=== PATIENT | male | born 1950 | race Caucasian/White ===

== ENCOUNTER 2022-01-29 05:46 | Emergency (ER) | payer OTHER, SELFPAY ==
[2022-01-29] VITALS (7 sets, daily range): BP systolic 124–160; BP diastolic 61–88; PULSE 74–90; RESP 14–20; TEMP 36.8–37.2; O2SAT 94–97; BMI 35.3
--- NOTE | 2022-01-29 07:04 | PC.NURSE ---
report given to GOKUL Toure
--- NOTE | 2022-01-29 07:19 | ECG_ITS ---
Test Reason : DIZZINESS Blood Pressure : / mmHG Vent. Rate : 074 BPM Atrial Rate : 074 BPM P-R Int : 154 ms QRS Dur : 082 ms QT Int : 400 ms P-R-T Axes : -05 -10 024 degrees QTc Int : 444 ms Normal sinus rhythm Inferior infarct , age undetermined Abnormal ECG When compared to the previous EKG of No significant changes seen Referred By: Ximena Schmid Electronically Signed By:Jacques Acosta
--- NOTE | 2022-01-29 07:20 | ED.DIZZY ---
HPI - Dizziness General Chief Complaint: Dizziness Stated Complaint: dizziness and flu like symptoms for 2xweeks Time Seen by Provider: 01/29/22 06:39 Source: patient Mode of arrival: EMS History of Present Illness HPI Narrative: 71-year-old male with history of diabetes states that he woke up with lightheadedness/dizziness on awakening, states is appetite has been decreased and he has been fighting ?scoot flu-like symptoms? for 2 weeks now. He states that he has had cough and sore throat with malaise and headache but denies any nausea, vomiting, diaphoresis, shortness of breath, chest pain/palpitations. Related Data Allergies Allergy/AdvReac Type Severity Reaction Status Date / Time ibuprofen [From Motrin] Allergy Unknown VOMITING Verified 01/29/22 05:58 Penicillins Allergy Unknown ITCH Verified 01/29/22 05:58 Review of Systems Review of Systems: Pertinent positives and negatives as stated in HPI 10 point review of systems otherwise negative. PMFSH Past Medical History Source: nursing notes reviewed Social History Social History Advance Directives: No Advance Directives Information Provided: Yes Physical Exam Vital Signs: Vital Signs: Last Vital Signs Temp 98.3 F 01/29/22 08:14 Pulse 83 01/29/22 08:14 Resp 20 01/29/22 08:14 BP 139/61 01/29/22 08:14 Pulse Ox 94 01/29/22 08:14 O2 Del Method 01/29/22 08:14 BMI result Body Mass Index 35.3 VITAL SIGNS: Reviewed. GENERAL: Well developed, well nourished, in no acute distress. HEAD: Normocephalic/atraumatic EYES: PERRLA, EOMI EARS: Ext canals without abnormality, TMs non-bulging and non-erythematous NOSE: Nares patent bilateral OROPHARYNX: no oral lesions noted, posterior pharynx clear and non-erythematous without noted tonsillar enlargement/erythema/exudates NECK: Supple, no adenopathy LUNGS: Normal breath sounds. No adventitious sounds or accessory muscle use. SpO2<95> CARDIOVASCULAR: Regular rate and rhythm without noted murmurs, no JVD or lower extremity edema. ABDOMEN: Soft, non-tender, non-distended with bowel sounds. MUSCULOSKELETAL: No tenderness, deformities, or effusions noted on gross inspection. EXTREMITIES: No cyanosis, clubbing or edema. SKIN: Inspection of the skin reveals no rashes NEUROLOGIC: Alert and oriented x 4. Strength and sensation to light touch were grossly intact x 4, cranial nerves 2-12 are grossly intact.. Medical Decision Making Medical Decision Making [facility] Narrative: 71-year-old male with history and clinical presentation of dizziness that I suspect is viral related. I reviewed all investigations which are negative for acute findings, orthostatics are negative and patient was informed of being RSV positive and otherwise discharged home in stable condition. Differential Diagnosis Differential Diagnoses: The differential diagnosis associated with the presentation includes Viral, dehydration, BPPV Lab Data [facility] Lab Attestation statement: I reviewed the patient's lab results. RSV positive Result Diagrams: 01/29/22 07:58 01/29/22 07:58 Labs: Lab Results 01/29/22 01/29/22 01/29/22 Range/Units 07:58 07:58 07:58 WBC 7.8 (4.8-10.8) X10*3/uL RBC 3.95 L (4.60-5.80) X10*6/uL Hgb 11.1 L (14.0-18.0) g/dl Hct 33.2 L (42.0-52.0) % MCV 84.1 (80.0-98.0) fL MCH 28.1 (27.0-33.0) pg MCHC 33.4 (31.0-36.0) g/dl RDW 12.5 (11.0-16.0) % Plt Count 194 (160-400) X10*3/uL MPV 11.2 (9.4-12.4) fL Immature Gran % (Auto) 0.4 (0.0-0.4) % Neut % (Auto) 63.6 (45-73) % Lymph % (Auto) 21.0 (20-40) % [place] % (Auto) 11.7 H (2-11) % Eos % (Auto) 2.8 (0-4) % Baso % (Auto) 0.5 (0-2) % Lymph # (Auto) 1.7 (1.2-4.9) X10*3/uL [place] # (Auto) 0.9 (0.1-1.2) X10*3/uL Eos # (Auto) 0.2 (0.0-0.4) X10*3/uL Baso # (Auto) 0.0 (0.0-0.2) X10*3/uL Abs Immat Gran (auto) 0.03 (0.00-0.03) X10*3/uL Absolute Neuts (auto) 5.0 (2.0-8.3) x10*3/uL Absolute Nucleated RBC 0.000 (0.0-0.012) X10*3/uL Nucleated RBC % (auto) 0.0 (0.0-0.2) /100WBC Sodium 140 (135-145) mmol/L Potassium 4.0 (3.3-5.1) mmol/L Chloride 102 (96-108) mmol/L Carbon Dioxide 27 (22-29) mmol/L Anion Gap 15 (12-20) BUN 13 (9-16) mg/dL Creatinine 0.85 (0.5-1.4) mg/dL Estim Creat Clear Calc 83.3 Estimated GFR > 60 Random Glucose 103 (60-115) mg/dL Calcium 8.4 (8.4-10.2) mg/dL Total Bilirubin 1.0 (0.0-1.0) mg/dL AST 25 (5-37) U/L ALT 25 (0-40) U/L Alkaline Phosphatase 68 (39-117) U/L Total Protein 6.3 L (6.5-8.0) g/dL Albumin 3.7 (3.5-5.0) g/dL Urine Color Urine Appearance Urine pH (5.0-9.0) Ur Specific [place] (1.005-1.025) Urine Protein (Neg-Trace) mg/dL Urine Glucose (UA) (Negative) mg/dL Urine Ketones (Negative) mg/dL Urine Blood (Negative) Urine Nitrite (Negative) Ur Leukocyte Esterase (Negative) Influenza Type A (PCR) NEGATIVE (Negative) Influenza Type B (PCR) NEGATIVE (Negative) RSV RNA Qual (PCR) POSITIVE A (Negative) SARS-CoV-2 RNA (RT-PCR) NEGATIVE (Negative) 01/29/22 Range/Units 07:58 WBC (4.8-10.8) X10*3/uL RBC (4.60-5.80) X10*6/uL Hgb (14.0-18.0) g/dl Hct (42.0-52.0) % MCV (80.0-98.0) fL MCH (27.0-33.0) pg MCHC (31.0-36.0) g/dl RDW (11.0-16.0) % Plt Count (160-400) X10*3/uL MPV (9.4-12.4) fL Immature Gran % (Auto) (0.0-0.4) % Neut % (Auto) (45-73) % Lymph % (Auto) (20-40) % [place] % (Auto) (2-11) % Eos % (Auto) (0-4) % Baso % (Auto) (0-2) % Lymph # (Auto) (1.2-4.9) X10*3/uL [place] # (Auto) (0.1-1.2) X10*3/uL Eos # (Auto) (0.0-0.4) X10*3/uL Baso # (Auto) (0.0-0.2) X10*3/uL Abs Immat Gran (auto) (0.00-0.03) X10*3/uL Absolute Neuts (auto) (2.0-8.3) x10*3/uL Absolute Nucleated RBC (0.0-0.012) X10*3/uL Nucleated RBC % (auto) (0.0-0.2) /100WBC Sodium (135-145) mmol/L Potassium (3.3-5.1) mmol/L Chloride (96-108) mmol/L Carbon Dioxide (22-29) mmol/L Anion Gap (12-20) BUN (9-16) mg/dL Creatinine (0.5-1.4) mg/dL Estim Creat Clear Calc Estimated GFR Random Glucose (60-115) mg/dL Calcium (8.4-10.2) mg/dL Total Bilirubin (0.0-1.0) mg/dL AST (5-37) U/L ALT (0-40) U/L Alkaline Phosphatase (39-117) U/L Total Protein (6.5-8.0) g/dL Albumin (3.5-5.0) g/dL Urine Color Yellow Urine Appearance Clear Urine pH 7.5 (5.0-9.0) Ur Specific [place] 1.015 (1.005-1.025) Urine Protein Trace (Neg-Trace) mg/dL Urine Glucose (UA) Negative (Negative) mg/dL Urine Ketones Negative (Negative) mg/dL Urine Blood Negative (Negative) Urine Nitrite Negative (Negative) Ur Leukocyte Esterase Negative (Negative) Influenza Type A (PCR) (Negative) Influenza Type B (PCR) (Negative) RSV RNA Qual (PCR) (Negative) SARS-CoV-2 RNA (RT-PCR) (Negative) Independent Interpretation I performed an independent interpretation of an: EKG Interpretation: Normal sinus rhythm, HR-74, no STEMI, MT/QRS/QTC is within normal limits. Discharge Plan Discharge Clinical Impression: Viral illness, Respiratory syncytial virus (RSV) Patient Disposition: Home, Self-Care Instructions: Viral Syndrome (ED), Respiratory Syncytial Virus (ED) Additional Instructions: 1. Resume all home medications as prescribed. 2. Recommend [id number] cough medication, sleep in a reclined position and not flat, cool mist humidifier at the bedside. 3. Continue with [id number] Tylenol for any headaches, body aches, temperatures greater than 100.4. 4. Follow-up with your primary care provider by calling the office today and setting up an appointment for re-evaluation further outpatient management. You have been diagnosed with RSV, which is a virus. Continue to drink plenty of water. Return to the ER for worsening symptoms.
[2022-01-29 08:22] LABS: MANUAL DIFF FLAG NO
[2022-01-29 08:25] LABS: Appearance Urine Clear; Color Urine Yellow; Glucose Urine UA Negative (Negative); Leukocyte Esterase Urine Negative (Negative); Nitrite Urine Negative (Negative); PH 7.5 (5.0-9.0); Specific Gravity - Urine 1.015 (1.005-1.025); Urine Blood Negative (Negative); Urine Ketones Negative (Negative); Urine Protein Trace mg/dL (Neg-Trace)
[2022-01-29 08:30] LABS: Basophils Percent Auto 0.5 % (0-2); Eosinophils Absolute Auto 0.2 X10*3/uL (0.0-0.4); Eosinophils Percent Auto 2.8 % (0-4); Hematocrit 33.2 % (42.0-52.0); Hemoglobin 11.1 g/dl (14.0-18.0); Imm Gran Abs Auto 0.03 X10*3/uL (0.00-0.03); Imm Gran Pct Auto 0.4 % (0.0-0.4); Lymphocytes Absolute Auto 1.7 X10*3/uL (1.2-4.9); Mean Corpuscular HGB Conc 33.4 g/dl (31.0-36.0); Mean Corpuscular Hemoglobin 28.1 pg (27.0-33.0); Mean Corpuscular Volume 84.1 fL (80.0-98.0); Mean Platelet Volume 11.2 fL (9.4-12.4); Monocytes Absolute Auto 0.9 X10*3/uL (0.1-1.2); Monocytes Percent Auto 11.7 % (2-11); Neutrophils Percent Auto 63.6 % (45-73); Platelet Count 194 X10*3/uL (160-400); Red Blood Count 3.95 X10*6/uL (4.60-5.80); Red Cell Distribution Width 12.5 % (11.0-16.0); White Blood Count 7.8 X10*3/uL (4.8-10.8)
[2022-01-29 08:47] LABS: Alanine Aminotransferase 25 U/L (0-40); Albumin Level 3.7 g/dL (3.5-5.0); Alkaline Phosphatase 68 U/L (39-117); Anion Gap 15 (12-20); Aspartate Amino Transferase 25 U/L (5-37); Blood Urea Nitrogen 13 mg/dL (9-16); Calcium 8.4 mg/dL (8.4-10.2); Carbon Dioxide 27 mmol/L (22-29); Chloride 102 mmol/L (96-108); Creatinine Clr Calc Pharmacy 83.3; Estimated Glomerular Filt Rate > 60; Glucose Random 103 mg/dL (60-115); Sodium 140 mmol/L (135-145); Total Protein 6.3 g/dL (6.5-8.0)
[2022-01-29 09:07] LABS: Influenza A PCR NEGATIVE (Negative); Influenza B PCR NEGATIVE (Negative); Resp Syncy Virus RNA Qual PCR POSITIVE (Negative); SARS COV2 PCR INHOUSE NEGATIVE (Negative)
== END 2022-01-29 10:41 | disposition home or self-care (01) ==
PROVIDERS: Emergency Provider Student in an Organized Health Care Education/Training Program
DX: J06.9 Acute upper respiratory infection, unspecified (principal); B97.4 Respiratory syncytial virus as the cause of diseases classified elsewhere; R42 Dizziness and giddiness; Z20.822 Contact with and (suspected) exposure to COVID-19; Z79.899 Other long term (current) drug therapy
CPT/HCPCS: 0241U; 80053; 81003; 85025; 93005; 99283; 99284

== ENCOUNTER 2024-02-08 00:03 | Emergency (ER) | payer OTHER, SELFPAY ==
--- NOTE | 2024-02-08 | ECG_ITS ---
Test Reason : CHEST PAIN Blood Pressure : / mmHG Vent. Rate : 087 BPM Atrial Rate : 087 BPM P-R Int : 162 ms QRS Dur : 084 ms QT Int : 364 ms P-R-T Axes : 035 -10 038 degrees QTc Int : 438 ms Normal sinus rhythm Inferior infarct (cited on or before 17-JUL-2015) Abnormal ECG When compared with ECG of 29-JAN-2022 07:34, No significant change was found Referred By: Generic ED Physician Electronically Signed By:ALEKS BOLANOS MD
[2024-02-08 00:21] VITALS: BP 140/78; BP 147/74; PULSE 88; PULSE 93; RESP 20; TEMP 37; O2SAT 96; BMI 33.3
[2024-02-08 00:36] LABS: Basophils Percent Auto 0.5 % (0-2); Eosinophils Percent Auto 0.1 % (0-4); Hematocrit 31.3 % (42.0-52.0); Hemoglobin 10.9 g/dl (14.0-18.0); Imm Gran Abs Auto 0.01 X10*3/uL (0.00-0.03); Imm Gran Pct Auto 0.1 % (0.0-0.4); Lymphocytes Absolute Auto 1.3 X10*3/uL (1.2-4.9); Lymphocytes Percent Auto 17.9 % (20-40); MANUAL DIFF FLAG NO; Mean Corpuscular HGB Conc 34.8 g/dl (31.0-36.0); Mean Corpuscular Hemoglobin 28.9 pg (27.0-33.0); Mean Platelet Volume 10.7 fL (9.4-12.4); Monocytes Absolute Auto 0.8 X10*3/uL (0.1-1.2); Monocytes Percent Auto 11.5 % (2-11); Neutrophils Absolute Auto 5.1 x10*3/uL (2.0-8.3); Neutrophils Percent Auto 69.9 % (45-73); Platelet Count 195 X10*3/uL (160-400); Red Blood Count 3.77 X10*6/uL (4.60-5.80); Red Cell Distribution Width 12.4 % (11.0-16.0); White Blood Count 7.3 X10*3/uL (4.8-10.8)
[2024-02-08 00:55] LABS: Troponin-I High Sensitivity 4.3 ng/L (<3.5-35.0)
[2024-02-08 00:57] LABS: Alanine Aminotransferase 13 U/L (0-40); Albumin Level 3.8 g/dL (3.5-5.0); Alkaline Phosphatase 62 U/L (39-117); Anion Gap 14 (12-20); Aspartate Amino Transferase 27 U/L (5-37); Bilirubin Total 0.6 mg/dL (0.0-1.0); Blood Urea Nitrogen 16 mg/dL (9-16); Calcium 8.3 mg/dL (8.4-10.2); Carbon Dioxide 25 mmol/L (22-29); Chloride 102 mmol/L (96-108); Creatinine Clr Calc Pharmacy 68.1; Estimated Glomerular Filt Rate > 60; Glucose Random 247 mg/dL (60-115); Lipase 31 U/L (8-78); Magnesium 1.2 mg/dL (1.6-2.6); Potassium 3.7 mmol/L (3.3-5.1); Sodium 137 mmol/L (135-145); Total Protein 6.5 g/dL (6.5-8.0)
--- NOTE | 2024-02-08 01:26 | ED.GENADULT ---
HPI - General Adult General Chief complaint: General Medical Stated complaint: Left shoulder pain x3 days Time Seen by Provider: 02/08/24 01:27 Source: patient and family () Mode of arrival: ambulatory Limitations: no limitations History of Present Illness ED Provider: Dr. David Worrell HPI narrative: 73-year-old male with a history of sciatica, brain aneurysm who presents emergency department for evaluation of left-sided neck and shoulder pain x3 days. The patient states that he woke up with pain in his left neck and the pain is gotten progressively worse. He states he now has pain in his left neck with spasm of his neck muscles. He also states the pain radiates to his left shoulder and to his left chest. Pain is worse with movement. He denied fever, chills, shortness of breath, nausea, vomiting or diaphoresis. Patient took a naproxen and tizanidine with no relief of his pain. He states his pain is currently 10/10. Related Data Previous Rx's ?Medication ?Instructions ?Recorded cyclobenzaprine 10 mg tablet 10 mg PO TID PRN muscle pain or 02/08/24 spasm #20 tabs Allergies Allergy/AdvReac Type Severity Reaction Status Date / Time ibuprofen [From Motrin] Allergy Unknown VOMITING Verified 02/08/24 00:26 Penicillins Allergy Unknown ITCH Verified 02/08/24 00:26 Review of Systems Review of Systems: Yes all other systems are reviewed and are negative [facility] Social History Social History Smoked in Last 30 Days: No Use of substances other than those prescribed or required for medical reasons: No Advance Directives: No Do you have a plan to hurt others: No Plan Physical Exam ED Vital Signs: Vital Signs - 24 hr 02/08/24 00:21 Temperature 98.6 F Pulse Rate 88 Respiratory Rate 20 Blood Pressure 147/74 H Pulse Oximetry 96 Oxygen Delivery Method Room Air BMI result Body Mass Index 33.3 Vital signs revealed an elevated blood pressure of 147/74 otherwise unremarkable Exam: Head: Normocephalic atraumatic Neck: Patient has tenderness with palpation in his left trapezius muscle in the spasm of this muscle. Patient was limited range of motion of his head and neck secondary to spasm and pain Lungs: Clear to auscultation, breath sounds symmetric bilaterally Heart: Regular rate and rhythm normal S1-2, no murmurs, gallops Abdomen: Soft, nontender, nondistended, normoactive bowel sounds Extremity: Patient has no tenderness to palpation of his left shoulder, has full range of motion in his left shoulder without any difficulty Neuro: Nonfocal Medications Administered Discontinued Medications Generic Name Dose Route Start Last Admin Trade Name Obi PRN Reason Stop Dose Admin Cyclobenzaprine HCl 10 mg 02/08/24 01:59 02/08/24 02:10 Cyclobenzaprine Hcl 10 Mg Tablet PO 02/08/24 02:00 10 mg ONCE ONE Administration Ketorolac Tromethamine 60 mg 02/08/24 01:59 02/08/24 02:10 Ketorolac Tromethamine 60 Mg/2 Ml Vial IM 02/08/24 02:00 60 mg ONCE ONE Administration Magnesium Oxide 800 mg 02/08/24 02:02 02/08/24 02:10 Magnesium Oxide 400 Mg Tablet PO 02/08/24 02:03 800 mg ONCE ONE Administration Medical Decision Making Medical Decision Making MDM Narrative: 73-year-old man with a history of sciatica, brain aneurysm who presents emergency department for evaluation of left neck, shoulder and chest pain x3 days. Physical examination did reveal significant spasm and tenderness of the left trapezius muscle. Differential diagnosis: ?Includes but is not limited to musculoskeletal pain, musculoskeletal spasm, myocardial infarction, myocardial ischemia, electrolyte abnormalities, anemia Course: 02:29 My interpretation patient's laboratory evaluation is as follows: Normocytic anemia with an H&H of 10.9 and 31.3. Glucose elevated 240 7. Troponin was detectable but not elevated at 4.3. Magnesium was low at 1.2. Patient's 12 EKG revealed no acute abnormalities. Patient's presentation is consistent with musculoskeletal injury/spasm of the left trapezius muscle. Patient was treated with Toradol 60 mg IM and Flexeril 10 mg orally. Patient was advised to continue to take his Aleve 1 pill twice a day for the next 3-4 days, he was advised to stop taking his tizanidine and was prescribed Flexeril 10 mg 3 times a day as needed for pain and spasm. He was also advised to apply ice to his neck muscle for 15 minutes 4 to 6 times a day. He was given printed and verbal instructions and discharged home. Admission/Observation Consideration of admission/observation: Escalation of care including admission/observation considered (Yes) Lab Data [facility] Lab Attestation statement: I reviewed the patient's lab results. 02/08/24 00:31 02/08/24 00:31 Labs: Lab Results 02/08/24 Range/Units 00:31 WBC 7.3 (4.8-10.8) X10*3/uL RBC 3.77 L (4.60-5.80) X10*6/uL Hgb 10.9 L (14.0-18.0) g/dl Hct 31.3 L (42.0-52.0) % MCV 83.0 (80.0-98.0) fL MCH 28.9 (27.0-33.0) pg MCHC 34.8 (31.0-36.0) g/dl RDW 12.4 (11.0-16.0) % Plt Count 195 (160-400) X10*3/uL MPV 10.7 (9.4-12.4) fL Immature Gran % (Auto) 0.1 (0.0-0.4) % Neut % (Auto) 69.9 (45-73) % Lymph % (Auto) 17.9 L (20-40) % [place] % (Auto) 11.5 H (2-11) % Eos % (Auto) 0.1 (0-4) % Baso % (Auto) 0.5 (0-2) % Lymph # (Auto) 1.3 (1.2-4.9) X10*3/uL [place] # (Auto) 0.8 (0.1-1.2) X10*3/uL Eos # (Auto) 0.0 (0.0-0.4) X10*3/uL Baso # (Auto) 0.0 (0.0-0.2) X10*3/uL Abs Immat Gran (auto) 0.01 (0.00-0.03) X10*3/uL Absolute Neuts (auto) 5.1 (2.0-8.3) x10*3/uL Absolute Nucleated RBC 0.000 (0.0-0.012) X10*3/uL Nucleated RBC % (auto) 0.0 (0.0-0.2) /100WBC Sodium 137 (135-145) mmol/L Potassium 3.7 (3.3-5.1) mmol/L Chloride 102 (96-108) mmol/L Carbon Dioxide 25 (22-29) mmol/L Anion Gap 14 (12-20) BUN 16 (9-16) mg/dL Creatinine 0.98 (0.5-1.4) mg/dL Estim Creat Clear Calc 68.1 Estimated GFR > 60 Random Glucose 247 H (60-115) mg/dL Calcium 8.3 L (8.4-10.2) mg/dL Magnesium 1.2 L* (1.6-2.6) mg/dL Total Bilirubin 0.6 (0.0-1.0) mg/dL AST 27 (5-37) U/L ALT 13 (0-40) U/L Alkaline Phosphatase 62 (39-117) U/L Troponin I High Sens 4.3 (<3.5-35.0) ng/L Total Protein 6.5 (6.5-8.0) g/dL Albumin 3.8 (3.5-5.0) g/dL Lipase 31 (8-78) U/L Independent Interpretation I performed an independent interpretation of an: EKG Interpretation: My interpretation patient's 12 EKG done at 00:18 hours is as follows: Normal sinus rhythm with a rate of 82, normal NM interval, QRS duration QTC interval, Q-waves in lead 3 and AVF, no ST segment elevation, no ST segment depression, no PACs, no PVCs, no significant T-wave abnormalities. Independent Historian Clinical information obtained from an independent historian. History obtained from or confirmed by: Spouse Prescription Management I considered prescription management with: Other (Anti spasm medications, Flexeril) Discharge Plan Discharge Clinical Impression: Spasm of left trapezius muscle Patient Disposition: Home, Self-Care Instructions: Muscle Spasm (ED) Additional Instructions: Your blood work was unremarkable except for low magnesium. Your EKG did not reveal any signs for heart attack. Your exam did reveal significant tenderness and spasm of the trapezius muscle of your neck. Stop taking your tizanidine and take Flexeril (cyclobenzaprine) 10 mg pills, 1 pill every 6-8 hours as needed for pain or spasm. ?This medication will make you sleepy. ?Do not drive or work while taking this medication. Continue taking your Alleve 1 pill every 12 hours as needed for pain Apply ice for 10-15 minutes to your left neck muscle 4 to 6 times a day for the next 2-3 days to try to help reduce the pain and spasm and this muscle Follow-up with your doctor in 2 days. Please return to the emergency department if your symptoms get worse or if you develop any symptoms that are concerning to you. Prescriptions: New cyclobenzaprine 10 mg tablet 10 mg PO TID PRN (Reason: muscle pain or spasm) Qty: 20 0RF Print Language: [place]ian
[2024-02-08 02:00] VITALS: BP 125/71; PULSE 75; RESP 14; TEMP 36.7; O2SAT 96
[2024-02-08] MEDS: Ketorolac Tromethamine 60 MG/2 ML VIAL IM (02:10)
[2024-02-08] MEDS: Cyclobenzaprine HCl 10 MG TABLET PO (02:10)
[2024-02-08] MEDS: Magnesium Oxide 400 MG TABLET 800 MG PO (02:10)
--- NOTE | 2024-02-08 02:15 | PC.NURSE ---
Provider into assess pt, medicated per mar, pt resting in bed.
--- NOTE | 2024-02-08 02:49 | PC.NURSE ---
reviewed discharge instructions with pt. pt verbalized understanding, no sign of distress upon discharge.
[2024-02-08 02:50] VITALS: BP 125/71; PULSE 75; RESP 16; TEMP 36.7; O2SAT 96
== END 2024-02-08 02:51 | disposition home or self-care (01) ==
PROVIDERS: Internal Medicine; Emergency Provider Emergency Medicine Emergency Medical Services; PCP Internal Medicine
DX: M62.838 Other muscle spasm (principal); M54.2 Cervicalgia; R07.9 Chest pain, unspecified
CPT/HCPCS: 36415; 80053; 83690; 83735; 84484; 85025; 93005; 96372; 99284; 99285; J1885

== ENCOUNTER → 2024-02-08 00:18 | Outpatient (BNV) | payer OTHER, SELFPAY | PROVIDERS: Emergency Provider Emergency Medicine Emergency Medical Services; PCP Internal Medicine; Visit Provider Internal Medicine Cardiovascular Disease | DX: R07.9 Chest pain, unspecified (principal); R94.31 Abnormal electrocardiogram [ECG] [EKG] | CPT/HCPCS: 93010 ==